=== PATIENT | male | born 1985 | race African-American/Black ===

== ENCOUNTER 2017-07-14 10:28 | Emergency (ER) | payer SELFPAY ==
--- NOTE | 2017-07-14 10:59 | RAD ---
PA AND LATERAL VIEWS OF CHEST: Date: 07/14/17 HISTORY: Shortness of breath, asthma, cough. FINDINGS: Comparison made with exam of 10/27/15. The cardiomediastinum is normal. The lungs are well expanded and clear. The bony thorax is normal. IMPRESSION: Normal exam. POS: H
== END 2017-07-14 13:45 | disposition home or self-care (01) ==
LOC: ERS 10:28
DX: R06.6 Hiccough (principal); Z87.891 Personal history of nicotine dependence
CPT/HCPCS: 71046; 99406

== ENCOUNTER 2020-04-23 16:53 | Emergency (ER) | payer SELFPAY ==
[2020-04-23 22:57] LABS: SARS-CoV-2 MS2 Positive; SARS-CoV-2 N Gene Negative; SARS-CoV-2 S Gene Negative; SARS-CoV-2 by NAA Not Detected (NotDetected); SARS-CoV-2 orf1ab Negative
== END 2020-04-23 17:30 | disposition home or self-care (01) ==
LOC: ERS 16:53
DX: R05 Cough (principal); R50.9 Fever, unspecified; R43.9 Unspecified disturbances of smell and taste; Z20.828 Contact with and (suspected) exposure to other viral communicable diseases; Z87.891 Personal history of nicotine dependence
CPT/HCPCS: 87635; 99283; U0003

== ENCOUNTER 2021-01-10 14:03 | Emergency (ER) | payer SELFPAY ==
[2021-01-10 14:23] LABS: #Lymphocytes 2.1 thou/uL (1.20-3.40); #Monocytes 0.4 thou/uL (0.11-0.59); #Neutrophils 2.4 thou/uL (1.40-6.50); %Basophils 0.1 % (0.0-1.0); %Eosinophils 0.7 % (0.0-10.0); %Lymphocytes 42.7 % (21.0-51.0); %Monocytes 7.5 % (0.0-10.0); %Neutrophils 49.1 % (42.0-75.0); Hemoglobin 14.4 g/dL (14.0-18.0); Mean Corpuscular HGB CONC 32.3 g/dL (32.0-36.0); Mean Corpuscular Hemoglobin 29.9 pg (27.0-31.0); Mean Corpuscular Volume 92.5 fL (78.0-98.0); Mean Platelet Volume 7.9 fL (7.4-10.4); Platelet Count 295 thou/uL (130-400); RBC Distribution Width 12.1 % (11.5-14.5); Red Blood Cell (RBC) Count 4.82 mill/uL (4.70-6.10); White Blood Cell (WBC) Count 4.9 thou/uL (4.8-10.8)
[2021-01-10 14:47] LABS: ALT (SGPT) 17 U/L (8-55); AST (SGOT) 17 U/L (5-34); Albumin 3.8 g/dL (3.5-5.0); Alkaline Phosphatase 72 U/L (40-110); Anion Gap 14 mmol/L (10-20); BUN (Urea Nitrogen) 9 mg/dL (8.9-20.6); Bilirubin, Total 0.7 mg/dL (0.2-1.2); Calc. Creatinine Clearance 0 mL/min (70-130); Calcium 9.1 mg/dL (7.8-10.44); Carbon Dioxide 23 mmol/L (22-29); Chloride 106 mmol/L (98-107); Globulin 3.3 g/dL (2.4-3.5); Glucose 137 mg/dL (70-105); Potassium 3.4 mmol/L (3.5-5.1); Protein, Total 7.1 g/dL (6.0-8.3); Sodium 140 mmol/L (136-145)
== END 2021-01-10 15:28 | disposition home or self-care (01) ==
LOC: ERS 14:03
DX: R06.02 Shortness of breath (principal); R11.0 Nausea
CPT/HCPCS: 36415; 71045; 80053; 85025; 93005

== ENCOUNTER 2021-01-21 19:51 | Emergency (ER) | payer SELFPAY ==
[2021-01-22] MEDS ORDERED: Boostrix 0.5 ML (Tdap) VIAL ONE (00:57)
[2021-01-22] MEDS ORDERED: Fentanyl 100 MCG/2 ML VIAL ONE (01:29)
== END 2021-01-21 21:20 | disposition left against medical advice (07) ==
LOC: ERS 19:51
DX: Z53.21 Procedure and treatment not carried out due to patient leaving prior to being seen by health care provider (principal)
CPT/HCPCS: 90715; J0690; J3010

== ENCOUNTER 2021-03-16 15:14 | Emergency (ER) | payer SELFPAY ==
[2021-03-16] MEDS ORDERED: Prochlorperazine Maleate 5 MG TAB ONE (16:08)
== END 2021-03-16 16:18 | disposition home or self-care (01) ==
LOC: ERS 15:14
DX: R11.2 Nausea with vomiting, unspecified (principal); J45.909 Unspecified asthma, uncomplicated
CPT/HCPCS: 99283; Q0164

== ENCOUNTER 2021-03-28 06:12 | Emergency (ER) | payer BC | END 2021-03-28 06:52 | disposition home or self-care (01) | LOC: ERS 06:12 | DX: R11.2 Nausea with vomiting, unspecified (principal) | CPT/HCPCS: 99283 ==

== ENCOUNTER 2021-04-06 15:13 | Emergency (ER) | payer BC | END 2021-04-06 18:04 | disposition left against medical advice (07) | LOC: ERS 15:13 | DX: Z53.21 Procedure and treatment not carried out due to patient leaving prior to being seen by health care provider (principal) ==

== ENCOUNTER 2021-04-08 11:04 | Emergency (ER) | payer BC | END 2021-04-08 12:00 | disposition home or self-care (01) | LOC: ERS 11:04 | DX: R11.2 Nausea with vomiting, unspecified (principal); R06.02 Shortness of breath; R19.7 Diarrhea, unspecified; Z76.0 Encounter for issue of repeat prescription; Z79.899 Other long term (current) drug therapy | CPT/HCPCS: 99281 ==

== ENCOUNTER 2022-09-10 04:29 | Emergency (ER) | payer SELFPAY ==
[2022-09-10] MEDS ORDERED: Ketorolac Tromethamine 30 MG/ML VIAL ONE (04:36)
== END 2022-09-10 04:53 | disposition home or self-care (01) ==
LOC: ERS 04:29
DX: K08.89 Other specified disorders of teeth and supporting structures (principal)
CPT/HCPCS: 96372; 99282; J1885

== ENCOUNTER 2023-03-21 00:50 | Emergency (ER) | payer SELFPAY ==
[2023-03-21 01:55] LABS: #Basophils 0.1 thou/uL (0.0-0.2); #Eosinphils 0.2 thou/uL (0.0-0.7); #Monocytes 0.4 thou/uL (0.11-0.59); #Neutrophils 1.6 thou/uL (1.40-6.50); %Eosinophils 4.6 % (0.0-10.0); %Lymphocytes 56.4 % (21.0-51.0); %Monocytes 7.2 % (0.0-10.0); %Neutrophils 30.6 % (42.0-75.0); Hematocrit 47.6 % (42.0-52.0); Hemoglobin 16.3 g/dL (14.0-18.0); Mean Corpuscular HGB CONC 34.2 g/dL (32.0-36.0); Mean Corpuscular Hemoglobin 30.8 pg (27.0-31.0); Mean Platelet Volume 10.6 fL (7.4-10.4); Platelet Count 229 10x3/uL (130-400); RBC Distribution Width 12.2 % (11.5-14.5); Red Blood Cell (RBC) Count 5.29 mill/uL (4.70-6.10); White Blood Cell (WBC) Count 5.3 10x3/uL (4.8-10.8)
[2023-03-21] MEDS ORDERED: LORazepam 2 MG/ML SYR.(CARPUJECT) ONE (01:56)
[2023-03-21 02:18] LABS: ALT (SGPT) 18 U/L (8-55); AST (SGOT) 16 U/L (5-34); Albumin 4.4 g/dL (3.5-5.0); Alkaline Phosphatase 64 U/L (40-110); Anion Gap 12 mmol/L (10-20); BUN (Urea Nitrogen) 11 mg/dL (8.9-20.6); Bilirubin, Total 0.5 mg/dL (0.2-1.2); CK (CPK) 150 U/L (30-200); Calc. Creatinine Clearance 0 mL/min (70-130); Calcium 9.3 mg/dL (7.8-10.44); Carbon Dioxide 27 mmol/L (22-29); Chloride 103 mmol/L (98-107); Estimated GFR 81; Globulin 2.6 g/dL (2.4-3.5); Glucose 102 mg/dL (70-105); Lipase 29 U/L (8-78); Potassium 3.7 mmol/L (3.5-5.1); Sodium 138 mmol/L (136-145)
[2023-03-21 02:21] LABS: Troponin I Less than 0.010 ng/mL (< 0.028)
== END 2023-03-21 04:54 | disposition home or self-care (01) ==
LOC: ERS 00:50
DX: J18.9 Pneumonia, unspecified organism (principal)
CPT/HCPCS: 71045; 80053; 82550; 83690; 83880; 84484; 85025; 85379; 93005; 96374; J2060